=== PATIENT | female | born 1980 | race Two or more races ===

== ENCOUNTER 2020-12-03 09:06 | Outpatient (CLI) | payer OTHER | END 2020-12-03 09:39 | disposition home or self-care (01) | LOC: OFIC 805 09:06 | PROVIDERS: ATTEND Otolaryngology Otology & Neurotology | DX: R59.0 Localized enlarged lymph nodes (principal); K21.9 Gastro-esophageal reflux disease without esophagitis ==

== ENCOUNTER 2023-01-26 19:54 | Emergency (ER) | payer OTHER ==
[~2023-01-26] VITALS: Ht 167.6 cm; Wt 72.6 kg
== END 2023-01-26 20:56 | disposition home or self-care (01) ==
LOC: ER 19:54
DX: R22.1 Localized swelling, mass and lump, neck (principal); H92.01 Otalgia, right ear; Z88.2 Allergy status to sulfonamides